=== PATIENT | female | born 1990 | race Caucasian/White ===

== ENCOUNTER 2019-07-17 15:51 | Outpatient (CLI) | payer OTHER, SELFPAY ==
--- NOTE | 2019-07-17 | XR_ITS ---
WS: [id number] Chest 2 views, 07/17/2019 Clinical Data: SARCOIDOSIS, FEVER, CHEST CONGESTION Comparison: Portable chest, 07/17/2017. Findings: No nodules, masses or effusions are seen. The heart is normal. The pulmonary vascularity is not increased. No pneumonia or pneumothorax is seen. There are clips in the right upper quadrant fro m a cholecystectomy. XR/XR chest 2V* [id number] Impression: Negative chest.
== END 2019-07-17 15:52 | disposition home or self-care (01) ==
LOC: RADOUTREAD 07-18 07:58
PROVIDERS: Family Provider Family Medicine; Visit Provider Nurse Practitioner
DX: Z01.89 Encounter for other specified special examinations (principal)

== ENCOUNTER 2020-12-10 06:30 | Outpatient (CLI) | payer MEDICAID, SELFPAY ==
[2020-12-10 18:02] LABS: Coronavirus Test Green County Not Detected
== END 2020-12-10 06:31 | disposition home or self-care (01) ==
LOC: ER 06:38 → LAB 06:54
PROVIDERS: Family Provider Family Medicine; Visit Provider Family Medicine
DX: R05 Cough (principal); Z20.822 Contact with and (suspected) exposure to COVID-19
CPT/HCPCS: 87635

== ENCOUNTER 2021-08-19 19:06 | Emergency (ER) | payer BC, MEDICAID, SELFPAY ==
[2021-08-19 19:13] VITALS: BP 152/106; PULSE 100; RESP 18; TEMP 36.7; O2SAT 100; BMI 24.2
[2021-08-19 19:23] VITALS: BP 137/104; PULSE 89; RESP 16; O2SAT 100
--- NOTE | 2021-08-19 19:26 | CTR_ITS ---
PROCEDURE INFORMATION: Exam: CT Left Lower Extremity Without Contrast, Knee Exam date and time: 08/19/2021 7:56 PM Age: 31 years old Clinical indication: Injury or trauma; Blunt trauma; Left; Patient HX: Fall today. C/O knee pain. ; Additional info: Fall injury effusion L knee TECHNIQUE: Imaging protocol: CT of the Left lower extremity without contrast was performed. Exam focused on the knee. Radiation optimization: All CT scans at this facility use at least one of these dose optimization techniques: automated exposure control; mA and/or kV adjustment per patient size (includes targeted exams where dose is matched to clinical indication); or iterative reconstruction. COMPARISON: No relevant prior studies available. RADIATION DOSE METRICS: Total DLP (mGy-cm): 336.57 FINDINGS: Bones/joints: Small joint effusion. Soft tissues: Mild subcutaneous edema over the patella and infrapatellar tendon. CT/CT knee LT wo con* [id number] IMPRESSION: 1. Negative for fracture or dislocation. 2. Small joint effusion. 3. Mild subcutaneous edema over the patella and infrapatellar tendon.
[2021-08-19 19:32] VITALS: RESP 16
[2021-08-19] MEDS: oxyCODONE-APAP 5-325 mg Tablet 2 TAB PO (19:32)
--- NOTE | 2021-08-19 20:48 | ED_ITS ---
HPI - Extremity Problem General: Chief complaint: Extremity Injury, Lower Stated complaint: L knee injury sent by Eris Chowdary Time Seen by Provider: 08/19/21 19:11 Source: patient History of Present Illness: 31-year-old female who stepped off a curb around noon today. She notes that her right ankle buckled a bit, and she ended up falling on her left knee directly. She hit the kneecap directly. It immediately swelled, and she had increased pain. She is taken some ibuprofen with some improvement in the swelling. She still is having significant pain and trouble walking. She denies any other injury including the right ankle. MD Complaint: extremity pain, joint swelling and joint pain Onset (ago): hour(s) Pain Consistency: constant Location: left Radiation: none Relieving factors: medication Exacerbating factors: range of motion and weight bearing Associated symptoms: Deny chest pain, fever(s) or short of breath Review of Systems Const: Denies: fever(s) Card: Denies: chest pain GI: Denies: abdominal pain Musc: Reports: extremity pain, joint pain and joint swelling; Denies: neck pain or back pain PFSH ED PFSH: Family History Brother Asthma Grandmother Cancer breast Father Hypertension Stroke Heart disease Other Diabetes Social History (Updated 05/20/19 @ 11:45 by Ashli Curry LPN) Smoking and tobacco status: never smoked Alcohol intake: current Alcohol intake frequency: 0-2 Drinks per Day Female Reproductive History: Date of last menstrual period: 08/10/21 Physical Exam Const: GENERAL APPEARANCE: cooperative; not ill appearing and not frail appearing ORIENTATION/CONSCIOUSNESS: Yes awake, Yes oriented to person, Yes oriented to place and Yes oriented to time HENMT: COMMON NORMALS: normocephalic HEAD & SCALP: normocephalic Eye: COMMON NORMALS: Equal, round and reactive pupils present and EOMs intact bilaterally PUPIL: Yes Equal, round and reactive pupils present Neck/C-Spine: GENERAL: Yes normal visual inspection Resp: COMMON NORMALS: normal respiratory effort, No use of accessory muscles and clear to auscultation bilaterally AUSCULTATION: clear to auscultation bilaterally Cardio: COMMON NORMALS: regular rate and regular rhythm RATE: regular rate RHYTHM: regular rhythm GI: COMMON NORMALS: Normal to inspection, nondistended, normoactive bowel sounds present Extremity: NARRATIVE EXTREMITY EXAM: Examination of the left lower extremity reveals a knee joint effusion present. There is no palpable deformity. There is bony tenderness over the patella, and some to the medial joint line. There is some distal femur tenderness as well at the joint. Ligament testing is guarded. Range of motion is guarded by pain as well. Neuro: SENSORIUM/ORIENTATION: Yes oriented to person, Yes oriented to place and Yes oriented to time Skin: NARRATIVE SKIN EXAM: Tiny abrasion over the patella. Course Vital Signs: Vital signs: Vital Signs Temperature 98.0 F 08/19/21 19:13 Pulse Rate 74 08/19/21 21:07 Respiratory Rate 18 08/19/21 21:07 Blood Pressure 137/104 08/19/21 19:23 Pulse Oximetry 98 08/19/21 21:07 MDM - Extremity (Nontraumatic) Medical Decision Making CT reveals a joint effusion. There is no bony defect. No dislocation. She will be allowed home to ice. Orders written for PT to start next week. Crutches for weightbearing as needed, she was told she may begin to weight-bear without them when she feels she can Lab Data Radiology Impressions Knee CT 08/19/21 19:26 IMPRESSION: 1. Negative for fracture or dislocation. 2. Small joint effusion. 3. Mild subcutaneous edema over the patella and infrapatellar tendon. Discharge Plan Discharge Patient Disposition: Home Clinical Impression: Contusion of knee, left, Effusion of knee joint, left Condition: Stable Prescriptions: New hydrocodone-acetaminophen 5-325 mg tablet 1 tab PO Q8H PRN (Reason: pain) Qty: 12 0RF ketorolac 10 mg tablet 10 mg PO TID PRN (Reason: pain) Qty: 10 0RF Discharge Orders: Discharge ED (Routine); Ordered 08/19/21 Ordered By: Lamberto Contreras Referrals: Jesus Hawkins MD [Primary Care Provider] - 4-7 days Patient Instructions: Knee Pain (ED), Opioid Safety Activity Restrictions/Additional Instructions: You may begin to weight-bear as tolerated. Use ice for pain and swelling, particularly in the first 3 to 5 days. Start some physical therapy next week. Medication as needed. Return for worsening pain despite treatment, any other concerns Coding Level of Care Code ED Sales Enablement Manager for Chg Fwd Exam Detailed
[2021-08-19 21:07] VITALS: PULSE 74; RESP 18; O2SAT 98
== END 2021-08-19 21:09 | disposition home or self-care (01) ==
PROVIDERS: Emergency Provider Emergency Medicine; PCP Family Medicine
DX: M25.462 Effusion, left knee (principal); S80.02XA Contusion of left knee, initial encounter; W18.39XA Other fall on same level, initial encounter
CPT/HCPCS: 73700; 99283; E0114